=== PATIENT | female | born 2000 | race Asian ===

== ENCOUNTER 2025-03-21 17:25 | Inpatient (IN) | payer OTHER, SELFPAY ==
[2025-03-21] VITALS (8 sets, daily range): BP systolic 97–131; BP diastolic 62–90; BMI 25.8; BMI 27.8
[2025-03-21 13:48] LABS: Glucose - Point of Care 459 mg/dl (70-99)
--- NOTE | 2025-03-21 14:58 | EDRN ---
Unable to find a vein w/ TT to VAT RN at this time.
--- NOTE | 2025-03-21 15:19 | ED.GENMED ---
History of Present Illness
<Isabella Ventura, OPENER - Last Filed: 03/21/25 17:43>
General
Chief Complaint: Blood Sugar Problem
Source: patient
Exam Limitations: none
Time Seen by Provider: 03/21/25 13:55
Nursing documentation reviewed up to this point in time: agreed with
History of Present Illness
History of Present Illness:
24-year-old female with a medical history of Type 1 DM, presents stating earlier today her Dexcom glucose monitor was reading 'high,' at about 12:30 p.m. and she gave herself Lispro 7.9 units at 12:30. During the high reading she felt dizziness,
diaphoresis, and two episodes of vomiting. She feels much better now.
She denies fever, chills, dysuria, frequency, urgency, changes in bowel movements, chest pain, respiratory distress, and abdominal pain. She mentioned having her period and is asking for Motrin for cramps.
Past History
<Isabella Ventura, OPENER - Last Filed: 03/21/25 17:43>
Past History
ED Past Medical History: IDDM
Social History
Tobacco: Non-smoker
Alcohol: None
Personal: Single
Living: with family
Employment: Employed
Review of Systems
<Isabella Ventura, OPENER - Last Filed: 03/21/25 17:43>
Review of Systems
Allergies reviewed?: Yes
All Other Systems: ROS reviewed and negative except as documented in HPI and ROS
Phy Exam
<Isabella Ventura, OPENER - Last Filed: 03/21/25 17:43>
Physical Exam
Physical Exam:
GENERAL: No acute distress. A&Ox3.
CONSTITUTIONAL: Afebrile.
EYES: clear, conjunctivae normal
ENMT: moist mucus membranes, Pharynx nl
RESPIRATORY: Regular respirations, nonlabored, lungs clear.
CARDIOVASCULAR: Regular rate and rhythm, tachycardic, no murmurs, no rubs.
GI: Soft, nontender, normal BS
MUSCULOSKELETAL: Moves with ease. Well perfused.
SKIN: Warm, dry, pink
PSYCH: Normal mood and affect. Well kept, interactive and appropriate
NEUROLOGIC: Awake, alert and oriented. No focal neurological deficits
Course
<Isabella Ventura OPENER - Last Filed: 03/21/25 17:43>
Orders/Labs/Results
Orders:
Orders
03/21/25 14:46
IV Insert/Care/Rem.- Treatment PRN
03/21/25 14:49
0.9% Sodium Chloride 1000 ml [Nss] 1,000 ml IV BOLUS
03/21/25 14:55
Ibuprofen [Motrin] 400 mg PO NOW STA
03/21/25 15:35
B-Hydroxybutyrate Urgent
Comment: ADD ON
Complete Blood Count/With Diff Urgent
Comprehensive Metabolic Panel Urgent
Glycohemoglobin (HgbA1c) Urgent
Manual Differential Urgent
Venous Blood Gas Urgent
%Oxygen/Room Air: 0
03/21/25 16:42
Bedside Glucose- Treatment Q1H
0.9% Sodium Chloride 1000 ml [Nss] 1,000 ml IV BOLUS
0.9% Sodium Chloride 1000 ml [Nss] 1,000 ml IV BOLUS
03/21/25 16:44
Add On- LAB Urgent
Tests Added?: B hydroxybutyrate
03/21/25 16:45
Basic Metabolic Panel Q2H
03/21/25 17:07
Reg Insulin 100 Units/100 ml [Novolin R Insulin Infusion] 100 units in 100 ml IV NOW
03/21/25 17:09
Admit/Transfer Patient As Directed
Co-Sign Provider:
Level of Care: Inpatient admission
Assign to:: ICU
Physician / Group: joaquin
Diagnosis: dka
Reason for Hospitalization: dka
Expected length of stay greater than two midnights?: Yes
ELOS- Estimated Length of Stay in days: 3
I certify the patient meets the requirements for IP care: Yes
PRN Pain Medication Management As Directed
May give lesser potent ordered pain med per pt: Yes
preference::
Protocol:: Medication orders for pain may be administered in a
manner that supports deferring to patient preference
when the pt is:
- Requesting an ordered lesser potent pain medication.
Least to most potent pain medications are defined
as: acetaminophen < NSAID < tramadol < opioids
(morphine, oxycodone, hydromorphone).
- Requesting a lesser dose of the same medication IF
ORDERED.
- Requesting a less intrusive route of administration
if both routes are prescribed by the provider (PO <
IV).
03/21/25 17:10
Code Status As Directed
Resuscitation Status: Full Code
03/21/25 18:45
Basic Metabolic Panel Q2H
03/21/25 20:45
Basic Metabolic Panel Q2H
Abnormal Lab Results
03/21/25 03/21/25 03/21/25
13:46 15:35 17:07
WBC 27.1 H 10^3/uL
(4.8-10.8)
RBC 5.54 H 10^6/uL
(4.20-5.40)
Plt Count 499 H 10^3/uL
(130-400)
Abs Neuts (Manual) 25.4 H 10^3/uL
(1.4-6.5)
Segmented Neutrophils 92 H %
(42-75)
Lymphocytes (Manual) 4 L %
(20-51)
VBG pH 7.13 L*
(7.32-7.43)
VBG pCO2 31 L mmHg
(35-48)
VBG pO2 92 H mmHg
(30-50)
VBG HCO3 10.3 L mmol/L
(22-27)
Carbon Dioxide 7 L* mmol/L
(22-30)
BUN 22 H mg/dl
(7-17)
Glucose 360 H mg/dl
(70-99)
Calcium 10.3 H mg/dl
(8.4-10.2)
Total Protein 9.6 H g/dl
(6.3-8.2)
Albumin 5.7 H g/dl
(3.5-5.0)
B-Hydroxybutyrate 5.67 H mmol/L
(0.02-0.27)
POC Glucose 459 H* mg/dl 247 H mg/dl
(70-99) (70-99)
03/21/25 15:35
Vital Signs
Initial and Last Documented VS:
Initial Vital Signs
Temp Pulse Resp BP Pulse Ox
97.6 F 128 20 131/77 98
03/21/25 13:38 03/21/25 13:38 03/21/25 13:38 03/21/25 13:38 03/21/25 13:38
Last Documented Vital Signs
Temp Pulse Resp BP Pulse Ox
97.6 F 113 18 104/62 100
03/21/25 13:38 03/21/25 17:00 03/21/25 17:00 03/21/25 17:00 03/21/25 17:00
<Beto Eaton DO - Last Filed: 03/21/25 17:03>
Orders/Labs/Results
Orders:
Orders
03/21/25 14:46
IV Insert/Care/Rem.- Treatment PRN
03/21/25 14:49
0.9% Sodium Chloride 1000 ml [Nss] 1,000 ml IV BOLUS
03/21/25 14:55
Ibuprofen [Motrin] 400 mg PO NOW STA
03/21/25 15:35
B-Hydroxybutyrate Urgent
Comment: ADD ON
Complete Blood Count/With Diff Urgent
Comprehensive Metabolic Panel Urgent
Glycohemoglobin (HgbA1c) Urgent
Manual Differential Urgent
Venous Blood Gas Urgent
%Oxygen/Room Air: 0
03/21/25 16:42
Bedside Glucose- Treatment Q1H
0.9% Sodium Chloride 1000 ml [Nss] 1,000 ml IV BOLUS
0.9% Sodium Chloride 1000 ml [Nss] 1,000 ml IV BOLUS
03/21/25 16:44
Add On- LAB Urgent
Tests Added?: B hydroxybutyrate
03/21/25 16:45
Basic Metabolic Panel Q2H
03/21/25 17:07
Reg Insulin 100 Units/100 ml [Novolin R Insulin Infusion] 100 units in 100 ml IV NOW
03/21/25 17:09
Admit/Transfer Patient As Directed
Co-Sign Provider:
Level of Care: Inpatient admission
Assign to:: ICU
Physician / Group: joaquin
Diagnosis: dka
Reason for Hospitalization: dka
Expected length of stay greater than two midnights?: Yes
ELOS- Estimated Length of Stay in days: 3
I certify the patient meets the requirements for IP care: Yes
PRN Pain Medication Management As Directed
May give lesser potent ordered pain med per pt: Yes
preference::
Protocol:: Medication orders for pain may be administered in a
manner that supports deferring to patient preference
when the pt is:
- Requesting an ordered lesser potent pain medication.
Least to most potent pain medications are defined
as: acetaminophen < NSAID < tramadol < opioids
(morphine, oxycodone, hydromorphone).
- Requesting a lesser dose of the same medication IF
ORDERED.
- Requesting a less intrusive route of administration
if both routes are prescribed by the provider (PO <
IV).
03/21/25 17:10
Code Status As Directed
Resuscitation Status: Full Code
03/21/25 18:45
Basic Metabolic Panel Q2H
03/21/25 20:45
Basic Metabolic Panel Q2H
Abnormal Lab Results
03/21/25 03/21/25 03/21/25
13:46 15:35 17:07
WBC 27.1 H 10^3/uL
(4.8-10.8)
RBC 5.54 H 10^6/uL
(4.20-5.40)
Plt Count 499 H 10^3/uL
(130-400)
Abs Neuts (Manual) 25.4 H 10^3/uL
(1.4-6.5)
Segmented Neutrophils 92 H %
(42-75)
Lymphocytes (Manual) 4 L %
(20-51)
VBG pH 7.13 L*
(7.32-7.43)
VBG pCO2 31 L mmHg
(35-48)
VBG pO2 92 H mmHg
(30-50)
VBG HCO3 10.3 L mmol/L
(22-27)
Carbon Dioxide 7 L* mmol/L
(22-30)
BUN 22 H mg/dl
(7-17)
Glucose 360 H mg/dl
(70-99)
Calcium 10.3 H mg/dl
(8.4-10.2)
Total Protein 9.6 H g/dl
(6.3-8.2)
Albumin 5.7 H g/dl
(3.5-5.0)
B-Hydroxybutyrate 5.67 H mmol/L
(0.02-0.27)
POC Glucose 459 H* mg/dl 247 H mg/dl
(70-99) (70-99)
03/21/25 15:35
Vital Signs
Initial and Last Documented VS:
Initial Vital Signs
Temp Pulse Resp BP Pulse Ox
97.6 F 128 20 131/77 98
03/21/25 13:38 03/21/25 13:38 03/21/25 13:38 03/21/25 13:38 03/21/25 13:38
Last Documented Vital Signs
Temp Pulse Resp BP Pulse Ox
97.6 F 113 18 104/62 100
03/21/25 13:38 03/21/25 17:00 03/21/25 17:00 03/21/25 17:00 03/21/25 17:00
<Isabella Ventura OPENER - Last Filed: 03/21/25 17:43>
MDM/Problems Addressed
Differential Diagnosis Includes:
DKA, Infectious process, Dehydration
MDM/Problems Addressed:
24-year-old female with a medical history of Type 1 DM, presents stating earlier today her Dexcom glucose monitor was reading 'high,' at about 12:30 p.m. and she gave herself Lispro 7.9 units at 12:30. During the high reading she felt dizziness,
diaphoresis, and two episodes of vomiting. She feels much better now.
She denies fever, chills, dysuria, frequency, urgency, changes in bowel movements, chest pain, respiratory distress, and abdominal pain. She mentioned having her period and is asking for Motrin for cramps.
Afebrile, NAD
Bedside glucose 459 mg/dl
CBC: WBC 27.1 (vomiting, DKA)
CMP: K+ 5.0, Bicarb 7 Glucose 360
VBG Consistent with DKA
IVFs infusing w/o
4:45 p.m.
Case discussed with Dr. Eaton who evaluated pt. and agrees admit to ICU.
Hospitalist notified of admission
<Isabella Ventura OPENER - Last Filed: 03/21/25 17:43>
*Pulse Oximetry
SaO2: 99
Oxygen Mode of Delivery: Room air
Patient hypoxic: no
<Beto Eaton, DO - Last Filed: 03/21/25 17:03>
*Critical Care Note
Total Time (30-74mins, 75-104mins- exclusive of procedures): 30
comment:
Critical care statement: A total of 30 minutes of critical care time was provided for this patient. This includes management of unstable vital signs, evaluation of the patient at bedside, reviewing the patient's pertinent medical records, discussion
with consultants, review of old EKGs and review of pertinent medical records. This time with separate from time utilized to perform the aforementioned documented procedures
ED Attending Note
<Isabella Ventura, OPENER - Last Filed: 03/21/25 17:43>
-
Portions of this chart may have been created with voice recognition software.� Occasional wrong word or��sound alike� substitutions may have occurred due to the inherent limitations of voice recognition software.
<Beto Eaton, DO - Last Filed: 03/21/25 17:03>
ED Attending Note
Patient seen and examined by attending physician: Yes
I performed a history and physical exam of patient and discussed management with resident, I reviewed resident's note and agree with documented findings and plan of care.: Yes
ED Attending Note:
I reviewed and agree with history treatment plan by Tina Ventura DNP. My exam revealed
Physical Exam
General: no apparent distress, not acutely ill
Neck: supple. no meningeal signs. normal posterior pharynx
Heart: s1/s2 regular rate and rhythm, no murmur. equal radial
pulses.
HEENT: Pupils equal round reactive to light, EOMI
Lungs: no acute respiratory distress. clear bilaterally
Abdomen: normal bowel sounds. not tender. no CVAT
Neuro: alert and oriented. no focal neurological deficits cranial nerves II through XII intact
Skin: no rash
Psychiatric: well kept. interactive and cooperative
Extremities: no edema. no calf tenderness. negative homans. good distal pulses
24-year-old female with DKA, IV fluids and insulin drip initiated, potassium 5.0. Admit to hospitalist.
Discharge Plan
Departure
Patient Disposition: Admit
Date of Disposition: 03/21/25
Time of Disposition: 16:48
Admit to: ICU
Presentation/result/management discussed w/ accepting MD/DO: Hospitalist
Patient with high blood pressure during this ER visit?: No
Condition: Serious
Discharge Problem:
DKA, type 1
Interventions
Interventions:
*Risk Screen - Suicide Last Done: 03/21/25 13:38
*General Assessment Last Done: 03/21/25 13:38
*Neglect/Abuse Screening Last Done: 03/21/25 16:00
*ED- Fall Risk Assessment Last Done: 03/21/25 14:48
*ED COVID-19 Vaccine History Last Done: 03/21/25 14:48
*ED Influenza Vaccine History Last Done: 03/21/25 13:38
ED- Neurological Assessment Last Done: 03/21/25 16:00
[2025-03-21] MEDS: MOTRIN 400 MG PO (15:40)
[2025-03-21 15:41] LABS: Venous Blood Gas B.E. -17.6 mmol/L (-4 to +4); Venous Blood Gas O2 Sat % 97.5 %
[2025-03-21] MEDS: NSS 1000 IV ×2 (15:42→17:14)
[2025-03-21 15:48] LABS: Hematocrit 45.1 % (37.0-47.0); Hemoglobin 15.3 g/dL (12.0-16.0); Mean Corp Hgb Conc. 33.9 g/dL (33.0-37.0); Mean Corpuscular Volume 81.4 fL (81.0-99.0); Platelet Count 499 10^3/uL (130-400); Red Cell Dist. Width 12.0 % (11.5-14.5)
[2025-03-21 15:57] LABS: ALT (SGPT) 22 U/L (0-35); AST (SGOT) 22 U/L (14-36); Albumin 5.7 g/dl (3.5-5.0); Alkaline Phosphatase 89 U/L (38-126); Blood Urea Nitrogen 22 mg/dl (7-17); Calcium 10.3 mg/dl (8.4-10.2); Carbon Dioxide 7 mmol/L (22-30); Chloride 105 mmol/L (98-107); Estimated Creatinine Clearance > 125 ml/min; Glucose 360 mg/dl (70-99); Potassium 5.0 mmol/L (3.5-5.1); Sodium 137 mmol/L (135-145); Total Protein 9.6 g/dl (6.3-8.2); eGFR > 60.00
[2025-03-21 15:59] LABS: Absolute Neutrophils -Man Diff 25.4 10^3/uL (1.4-6.5)
[2025-03-21 16:00] LABS: Normal RBC Morphology Yes; Platelets Checked Yes
[2025-03-21 16:01] LABS: Total Cells Counted 100
--- NOTE | 2025-03-21 16:25 | EDRN ---
Informed Carson LEO of VBG results of pH 7.13 at this time.
--- NOTE | 2025-03-21 16:40 | EDRN ---
Insulin pump removed and thrown into trash by mother at this time per request of Dr. Eaton.
--- NOTE | 2025-03-21 16:57 | HPS.HSE ---
Addendum entered and electronically signed by April Valladares MD 03/21/25 18:07:
This is an addendum to H&P written by Nicky Tinoco on 03/21/2025. �Patient seen and examined independently with HIMS CODER.
24-year-old female past medical history of type 1 diabetes on insulin pump presenting with 'high' blood sugars on Dexcom. �Diaphoretic, vomiting. �No abdominal pain or fever. �No upper respiratory symptoms or urinary symptoms.
Patient with DKA unclear trigger. �N.p.o., IV fluids with potassium, Accu-Chek every hour, BMP every 2 hours, insulin drip, diabetic nurse practitioner consulted.
Original Note:
Family Physician
-
Family Physician: Linus Chakraborty
Chief Complaint
-
hyperglycemia
History of Present Illness
24-year-old female with a medical history of Type 1 DM, presents stating earlier today her Dexcom glucose monitor was reading 'high,'. Lat night her blood sugar was reading at 300's and since then it was reading high all night. today morning she
vomited twice, she was pale, diaphoretic and got dizzy. at that time here Dexcom was reading high. she took 7.9 units at at that time. she has insulin pump, she thought her pods are leaking so changed the Pods. She denies fever, chills, dysuria,
frequency, urgency, changes in bowel movements, chest pain, respiratory distress, and abdominal pain.
Concern for DKA. Patient was initiated on insulin drip. Insulin pump removed. Admitted for further management
Medical History
Past Medical History
Past Medical History: Reports Other
Past Surgical History: Reports Other
Additional Past Surgical History:
Ear tube
Social History
Tobacco: Non-smoker
Alcohol: None
Drug: None
Living: With Family
Family History
Family History: Not pertinent
Allergies / Home Medications
Allergies reflects when Allergies were last updated in [facility].
Home Medications with original date entered in [facility]
Allergy/Medication List:
Allergies
Allergy/AdvReac Type Severity Reaction Status Date / Time
No Known Allergies Allergy Verified 03/21/25 13:38
Home Medications
guanfacine 2 mg tablet,extended release 24 hr 2 mg PO HS 02/18/19
Patient Own Insulin Pump 1 sliding scale dose SC .VIA INSULIN LISPRO Diabetes 03/21/25
metformin 500 mg tablet,extended release 24 hr 2,000 mg PO QPM Diabetes 03/21/25
Review of Systems
-
Constitutional: Reports No Symptoms
EENT: Reports No Symptoms
Respiratory: Reports No Symptoms
Cardiac: Reports Diaphoresis
Abdomen/GI: Reports No Symptoms
: Reports No Symptoms
Musculoskeletal: Reports No Symptoms
Skin: Reports No Symptoms
Neurological: Reports Dizzy
Endocrine: Reports No Symptoms
Hematologic/Lymphatic: Reports No Symptoms
Psych: Reports No Symptoms
Physical Exam
Vital Signs
Vital Signs
Temp Pulse Resp BP Pulse Ox
97.6 F 108 18 110/73 99
03/21/25 13:38 03/21/25 16:00 03/21/25 16:00 03/21/25 16:00 03/21/25 16:00
Physical Exam
General: Well Developed, Well Nourished and No Apparent Distress
HEENT: NormoCephalic, Moist mucous membranes and Atraumatic
Respiratory: Clear
Cardiac: S1/S2 and Regular Rhythm; No Murmur or Rub
GI: Soft, Non Tender, Non Distended and Normal Bowel Sounds; No Organomegaly
Rectal: Deferred by Provider
Musculoskeletal: No Clubbing, No Cyanosis and No Edema
Skin: No Rash
Neuro: AO x 3 and Nonfocal/grossly intact
Psych: Calm
Laboratory Results
-
03/21/25 15:35
Laboratory Results
Total Bilirubin 0.8 mg/dl (0.2-1.3) 03/21/25 15:35
AST 22 U/L (14-36) 03/21/25 15:35
ALT 22 U/L (0-35) 03/21/25 15:35
Alkaline Phosphatase 89 U/L (38-126) 03/21/25 15:35
Data Reviewed
-
Lab Data: Labs Reviewed by me
Impression/Plan
-
# Type 1 diabetes
# DKA
- Regular insulin continued
- Fluids continued
- Diabetic HIMS CODER consulted
- Hold metformin
- Insulin pump removed
# Leukocytosis likely reactive
- WBCs down to 7.1, patient is afebrile
- Continue to monitor
# DVT prophylaxis
- Lovenox
# CODE STATUS
- Full code
--- NOTE | 2025-03-21 17:05 | CM ---
Chart reviewed and spoke with patient and mother at ED bedside
Lives with parents, brother and grandfather
Independent
DME Dexcom
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
PCP DR. Linus Chakraborty
Pharmacy [facility]
no hx of VN nor SNF
DCP is to go home and mom can drive
Cm will continue to follow up for any dcp needs
[2025-03-21 17:08] LABS: Glucose - Point of Care 247 mg/dl (70-99)
--- NOTE | 2025-03-21 17:14 | EDRN ---
Called pharmacist to mix and send insulin drip at this time
--- NOTE | 2025-03-21 17:31 | EDRN ---
Dr. Campbell in room w/ pt at this time.
[2025-03-21] MEDS: NOVOLIN R INSULIN INFUSION 100 IV (17:35)
--- NOTE | 2025-03-21 17:50 | EDRN ---
Report called to Zakia HAQ in ICU at this time.
[2025-03-21 18:30] LABS: Glucose - Point of Care 177 mg/dl (70-99)
--- NOTE | 2025-03-21 18:34 | PTCARENOTE ---
patient received from ED, insulin handoff per documentation. accucheck as noted. D/W pharmacist and typewriter aligner [employer]. orders pending. VAT team notified of need for possible midline IV access. call rojas in reach
[2025-03-21 19:13] LABS: Glucose - Point of Care 131 mg/dl (70-99)
--- NOTE | 2025-03-21 19:19 | PTCARENOTE ---
IVF changed,Clothing Consultant ROLLING CHAIR PUSHER updated. orders noted. VAT RN at bedside to insert midline. report to ongoing RN
[2025-03-21] MEDS: TORADOL 15 MG IV (19:27)
[2025-03-21] MEDS: LOVENOX 40 MG SC (19:27)
[2025-03-21] MEDS: D5/0.45%NSS with KCL 20 MEQ 1000 IV (19:28)
[2025-03-21 19:45] LABS: APTT 23.2 Sec (23.4-35.0); INR 1.10; PT 14.3 Sec (11.4-14.6)
[2025-03-21 20:00] LABS: Blood Urea Nitrogen 16 mg/dl (7-17); Calcium 8.6 mg/dl (8.4-10.2); Carbon Dioxide 11 mmol/L (22-30); Chloride 114 mmol/L (98-107); Estimated Creatinine Clearance 123 ml/min; Glucose 149 mg/dl (70-99); Magnesium 1.9 mg/dl (1.6-2.3); Potassium 4.4 mmol/L (3.5-5.1); Sodium 137 mmol/L (135-145); eGFR > 60.00
[2025-03-21 20:12] LABS: Glucose - Point of Care 145 mg/dl (70-99)
--- NOTE | 2025-03-21 20:48 | PTCARENOTE ---
Handoff report received from off going RN. Patient received on insulin gtt. Titration as per DKA protocol. VAT team at the bedside for midline placement. Patient became tearful due to fear of needles per the patient. Distraction and comfort measures
provided. Toradol for headache. Plan of care for the shift reviewed with the patient. Sinus tachy on the monitor with HR fluctuating between 110-120s. Diminished breath sounds. SpO2 at 100% on room air. Hypoactive BS. Patient encouraged to turn and
reposition in bed. D5/1/2NS with 20 kcl at 150% mls/hr. Call rojas is within reach.
[2025-03-21 21:12] LABS: Glucose - Point of Care 170 mg/dl (70-99)
[2025-03-21 22:10] LABS: Glucose - Point of Care 158 mg/dl (70-99)
[2025-03-21 23:10] LABS: Glucose - Point of Care 162 mg/dl (70-99)
[2025-03-22] VITALS (14 sets, daily range): BP systolic 93–136; BP diastolic 55–97; BMI 27.6
--- NOTE | 2025-03-22 00:12 | PTCARENOTE ---
Patient reassessed. Sinus tach on the monitor with HR 107. No changes.
[2025-03-22 00:18] LABS: Glucose - Point of Care 188 mg/dl (70-99)
[2025-03-22 00:46] LABS: Blood Urea Nitrogen 16 mg/dl (7-17); Calcium 8.2 mg/dl (8.4-10.2); Carbon Dioxide 17 mmol/L (22-30); Chloride 111 mmol/L (98-107); Estimated Creatinine Clearance 123 ml/min; Glucose 185 mg/dl (70-99); Potassium 4.0 mmol/L (3.5-5.1); Sodium 133 mmol/L (135-145); eGFR > 60.00
[2025-03-22 01:12] LABS: Glucose - Point of Care 166 mg/dl (70-99)
[2025-03-22] MEDS: D5/0.45%NSS with KCL 20 MEQ 1000 IV ×2 (02:00→08:12)
[2025-03-22 02:14] LABS: Glucose - Point of Care 178 mg/dl (70-99)
[2025-03-22 03:11] LABS: Glucose - Point of Care 173 mg/dl (70-99)
[2025-03-22 04:27] LABS: Venous Blood Gas B.E. -9.0 mmol/L (-4 to +4); Venous Blood Gas O2 Sat % 99.4 %
[2025-03-22 04:28] LABS: Glucose - Point of Care 181 mg/dl (70-99); Venous Blood Gas O2 Therapy ROOM AIR
[2025-03-22 04:43] LABS: Blood Urea Nitrogen 11 mg/dl (7-17); Calcium 8.2 mg/dl (8.4-10.2); Carbon Dioxide 18 mmol/L (22-30); Chloride 112 mmol/L (98-107); Estimated Creatinine Clearance 123 ml/min; Glucose 184 mg/dl (70-99); Magnesium 2.0 mg/dl (1.6-2.3); Potassium 4.0 mmol/L (3.5-5.1); Sodium 135 mmol/L (135-145); eGFR > 60.00
[2025-03-22 04:58] LABS: Hematocrit 33.9 % (37.0-47.0); Hemoglobin 11.4 g/dL (12.0-16.0); Mean Corp Hgb Conc. 33.6 g/dL (33.0-37.0); Mean Corpuscular Volume 82.1 fL (81.0-99.0); Platelet Count 385 10^3/uL (130-400); Red Cell Dist. Width 12.3 % (11.5-14.5)
[2025-03-22 05:19] LABS: Glucose - Point of Care 138 mg/dl (70-99)
[2025-03-22 06:14] LABS: Glucose - Point of Care 178 mg/dl (70-99)
[2025-03-22 07:16] LABS: Glucose - Point of Care 225 mg/dl (70-99)
--- NOTE | 2025-03-22 07:18 | PTCARENOTE ---
vital signs filed for previous shift from 03/21 2330- 03/22 0700.
--- NOTE | 2025-03-22 08:06 | W.PN.HOSP.TC ---
Today's Communication/Plan
-
see A/P
Assessment / Plan
Assessment / Plan
HPI: 24-year-old female past medical history of type 1 diabetes on insulin pump, p/w 'high' blood sugars on Dexcom. �
Also c/o diaphoresis and vomiting. �No abdominal pain or fever. �No upper respiratory symptoms or urinary symptoms.
A/P:
# DKA, resolved
# Type 1 diabetes
Anion gap closed x2, change insulin drip to SQ insulin (pt does not have insulin pump with her)
Start NPH 7 units now, then Lantus 10 units HS, Aspart 5 units AC
ISS coverage
Start diabetic diet
Diabetic PRODUCTION SUPV consulted
# Leukocytosis likely reactive
Check COVID/Flu
Check blood culture to r/o
DVT prophylaxis- Lovenox
CODE STATUS- Full code
DW RN
Anticipated Discharge: Within 24 hours
Subjective/Interval History
-
Date of Service: March 22, 2025
Objective Data
-
Labs:
Laboratory Results
03/22/25 03/22/25 03/22/25
00:12 04:11 08:03
WBC 18.7 H
Hgb 11.4 L D
Hct 33.9 L
Plt Count 385 D
Sodium 133 L 135 Pending
Potassium 4.0 4.0 Pending
Chloride 111 H 112 H Pending
Carbon Dioxide 17 L 18 L Pending
BUN 16 11 Pending
Creatinine 0.4 L 0.4 L Pending
Glucose 185 H 184 H Pending
Calcium 8.2 L 8.2 L Pending
03/22/25 03/22/25 03/22/25
12:00 16:00 20:00
WBC
Hgb
Hct
Plt Count
Sodium Pending Pending Pending
Potassium Pending Pending Pending
Chloride Pending Pending Pending
Carbon Dioxide Pending Pending Pending
BUN Pending Pending Pending
Creatinine Pending Pending Pending
Glucose Pending Pending Pending
Calcium Pending Pending Pending
Vital Signs:
Vital Signs
Temp Pulse Resp BP Pulse Ox
37.0 C 120 18 122/90 99
03/22/25 07:08 03/21/25 18:32 03/21/25 18:32 03/21/25 18:28 03/21/25 19:10
I&O
03/21/25 03/22/25 03/23/25
06:59 06:59 06:59
Intake Total 1596 / 1748 152 / 152
Balance 1596 / 1748 152 / 152
[2025-03-22 08:14] LABS: Glucose - Point of Care 230 mg/dl (70-99)
--- NOTE | 2025-03-22 08:28 | CON.INTV ---
Consultation
Consultation Request
Date/Time Consultation Requested: 03/21/2025
Date/Time Consultation Performed: 03/22/2025
Requesting Provider: Dr. Valladares
Performing Provider: Dr. Kraus
Reason for Consultation: DKA
Medical History
-
Chief Complaint: Abd pain + vomiting with high blood sugar
History of Present Illness:
24-year-old female type I diabetic presented with elevated glucose levels in addition to vomiting. Patient was in her usual state of health, and then on the evening of 03/20 she started to have 'high' glucose levels reading from her Dexcom glucose
monitor. This persisted into the following day and she also vomited and appeared pale, per the mother. Patient arrived and was tachycardic with abdominal discomfort and felt dizzy. Initial blood glucose upon arrival was 360mg/dL with a serum
bicarbonate level of 7, increased anion gap of 25 and beta-hydroxybutyrate: 5.67. 2 L IVF with 0.9% NS was given in the ER in addition to ibuprofen 400mg. Patient then started on insulin drip and admitted to the ICU for further care with
laborer laboratory service consulted for additional management/recommendations.
When I saw the patient this morning, she was feeling much better. Current heart rate 120, BP 118/80 and she is breathing comfortably on room air. She no longer has urge to vomit, denies nausea, also denies shortness of breath, chest pain,
abdominal pain, fevers or chills. I spoke to the patient's parents, Nola (mother) and David (father) -they deny that Sheryl has been sick recently. She has been using her insulin pump without issue, managed by endocrinology at [facility] in
[place]. Patient uses insulin pump that has a basal rate and additional short acting insulin is given to her if needed depending on what she eats (which she inputs into her favian and that is how the pump knows how much to give her). Of note,
she uses an insulin pump patch, usually places it onto her arm; sometimes it leaks but this is not unusual.
PMHx: DM type I on insulin pump
PSHx: Myringotomy tubes
Past Medical History
Past Medical History: Other (Above as per HPI)
Past Surgical History: Other (Above as per HPI)
Social History
Tobacco: Non-smoker
Alcohol: None
Drug: None
Living: With Family
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
Family History
Family History: Reviewed & Not Pertinent
Allergies / Home Medications
Allergies
Allergy/AdvReac Type Severity Reaction Status Date / Time
No Known Allergies Allergy Verified 03/21/25 13:38
Home Medications
�Medication �Instructions �Recorded �Confirmed �Last Taken �Type
guanfacine 2 mg tablet,extended 2 mg PO HS 02/18/19 03/21/25 03/20/25 History
release 24 hr
Patient Own Insulin Pump 1 sliding scale dose SC .VIA 03/21/25 03/21/25 Unknown History
INSULIN LISPRO Diabetes
metformin 500 mg tablet,extended 2,000 mg PO QPM Diabetes 03/21/25 03/21/25 03/20/25 History
release 24 hr
Review of Systems
-
History Source: Patient
All other systems: Negative unless noted
Vitals / Labs / Diagnostic Testing
Vital Signs
Temp Pulse Resp BP Pulse Ox
98.6 F 97 10 110/66 99
03/22/25 07:08 03/22/25 09:15 03/22/25 09:15 03/22/25 09:00 03/22/25 09:15
Lab Data
03/22/25 04:11
03/22/25 20:00
Laboratory Results
03/21/25 03/21/25
18:34 19:29
PT Cancelled 14.3
INR Cancelled 1.10
APTT 23.2 L
Diagnostic Testing:
Physical Exam
-
HEENT: Normocephalic and Anicteric
Cardiovascular: S1/S2, Rub (negative), Peripheral Edema (negative) and Other (Tachycardic)
Respiratory: Wheeze (negative), Rales (negative), Rhonchi (negative) and Non-Labored Respirations
GI: Soft, Non Distended, Non Tender and Normal Bowel Sounds
Neurology: Awake, Alert, Oriented and Tremors (negative)
Skin: Warm and Dry
General: Respiratory Distress (negative), Comfortable, Fever (negative) and Chills (negative)
Assessment
-
Assessment: 24-year-old female type I diabetic presented with elevated glucose levels in addition to vomiting. Patient was in her usual state of health, and then on the evening of 03/20 she started to have 'high' glucose levels reading from her
Dexcom glucose monitor. This persisted into the following day and she also vomited and appeared pale, per the mother. Patient arrived and was tachycardic with abdominal discomfort and felt dizzy. Initial blood glucose upon arrival was 360 with a
serum bicarbonate level of 7, increased anion gap of 25 and beta-hydroxybutyrate: 5.67. 2 L IVF with 0.9% NS was given in the ER in addition to ibuprofen 400mg. Patient then started on insulin drip and admitted to the ICU for further care with
laborer laboratory service consulted for additional management/recommendations.
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
Impression:
#DM type I complicated by DKA
#Sinus tachycardia likely due to stress from above (possible component of anxiety)
#Pseudohyponatremia
#Metabolic acidosis with increased anion gap (due to DKA, and now gap is closed although she does remain slightly acidotic)
Plan:
- Unclear what caused her DKA as patient was in her usual state of health prior to her sugars starting to rise on the evening of 03/20
- The patient's insulin pump has been leaking, although this is a mild amount and is not unusual for her pump
- Patient uses Dexcom glucometer, and an insulin pump patch, and is monitored by an marine service operator at [facility] (Dr. Dede Oviedo)
- Patient is now being weaned off insulin drip as serum bicarbonate level has been 18 or greater x2 with AG closed x3
- Patient is being transitioned to basal�bolus SQ insulin;the patient's mother has brought in her insulin pump and considering that the patient will go home with this modality, I will restart this now
- Once insulin pump is attached to the patient, then we will stop the Lantus that is currently ordered in addition to pre-meal SQ insulin and will continue with ISS only
- Maintain euglycemia with goal BG 140-180; HbA1c is 8.0%
- Maintain SpO2 >90-94%, using supplemental O2 if needed
- Maintain MAP>65
- Replete electrolytes with K>4, Mg>2
- Patient does have leukocytosis which was initially significant at 27.1, which is improving to now 18.7
- She is nontoxic-appearing and denies UTI symptoms, denies a cough, denies abdominal pain, fevers or chills
- As of now, leukocytosis appears reactive and would monitor off antibiotics
- Check UA
- Continue trending WBC and monitor temperature curve with low threshold to parmar-culture and start antibiotics if patient spikes a fever
- Trend H/H and transfuse if needed to keep Hb>7g/dL; keep plt>20k, unless there is concern for bleeding then keep plt>50k
- prn nebulized bronchodilators - not currently bronchospastic
- Incentive spirometer encouraged 10x per hour for at least 4 hrs a day
- DVT ppx: LMWH
Patient is stable for downgrade out of ICU to telemetry. No additional recommendations at this time. Keyboard Specialist/Pulmonary service will now sign off. Thank you for allowing us to be involved in the care of this patient. Please reconsult if there
are any additional questions/concerns, or if patient's respiratory status deteriorates.
Total time spent today was 78 minutes for this encounter. Time includes reviewing laboratory test/imaging results, reviewing pertinent medical records, obtaining and reviewing medical history, performing an appropriate exam, ordering medications,
tests and procedures. Time also includes documentation of this encounter, coordinating patient care and communicating with other healthcare professionals. Total time does not include separately billed tests performed on this date of service.
[2025-03-22 09:01] LABS: Blood Urea Nitrogen 9 mg/dl (7-17); Calcium 8.1 mg/dl (8.4-10.2); Carbon Dioxide 19 mmol/L (22-30); Chloride 111 mmol/L (98-107); Estimated Creatinine Clearance 123 ml/min; Glucose 223 mg/dl (70-99); Potassium 4.0 mmol/L (3.5-5.1); Sodium 134 mmol/L (135-145); eGFR > 60.00
[2025-03-22 09:12] LABS: Glucose - Point of Care 209 mg/dl (70-99)
[2025-03-22 09:27] LABS: COVID-19 Antigen Negative (Negative)
[2025-03-22] MEDS: NOVOLIN N vial 0.07 UNITS SC (09:28)
[2025-03-22 09:42] LABS: Glycohemoglobin (HgbA1c) 8.0 % (4.0-5.9)
[2025-03-22 10:09] LABS: Glucose - Point of Care 195 mg/dl (70-99)
--- NOTE | 2025-03-22 10:40 | CM ---
Chart reviewed. Spoke with her nurse in ICU
DCP is to go home tomorrow per attending
no needs anticipated
[2025-03-22 10:45] LABS: Glucose - Point of Care 168 mg/dl (70-99)
[2025-03-22] MEDS: NOVOLOG FLEXPEN-LOW RESISTANCE 1 UNITS SC (11:11)
[2025-03-22] MEDS: NOVOLOG FLEXPEN 5 UNITS SC (11:11)
--- NOTE | 2025-03-22 11:18 | PTCARENOTE ---
Rec'd pt at 0700, pt AAOx3. OOB to bathroom. Monitor ST. Lungs CTA, pox 98% RA. +BS, abd soft/nt. VDG yellow urine. Insulin gtts infusing with q1hr accuchecks per protocol.
0930-7 units SQ NPH given. Insulin gtts and IVF's turned off at 1030. Pt ordered breakfast and is currently OOB in chair eating with father at bedside.
[2025-03-22 13:09] LABS: Blood Urea Nitrogen 8 mg/dl (7-17); Calcium 8.9 mg/dl (8.4-10.2); Carbon Dioxide 20 mmol/L (22-30); Chloride 108 mmol/L (98-107); Estimated Creatinine Clearance 123 ml/min; Glucose 225 mg/dl (70-99); Potassium 4.4 mmol/L (3.5-5.1); Sodium 135 mmol/L (135-145); eGFR > 60.00
--- NOTE | 2025-03-22 14:21 | PTCARENOTE ---
1240-mother helped pt reapply insulin pump device to pt's ROLO. When asked what pt's basal rate was pt stated that she didn't know and didn't know any of her settings. Pt attempted to look in favian and was only able to find max basal dose. 2 RNs looked
through pt's favian and from previous data appears basal rate adjusts according to pt's blood sugar. MD notified. Pt aware to not give herself any bolus doses of insulin with meals and that we will be checking her glucose with our glucometers as well
and treating her with our SSI before meals, pt verbalizes understanding. Pt downgraded to tele LOC.
[2025-03-22 14:51] LABS: Urine Character Clear (Clear)
[2025-03-22 15:28] LABS: Urine Squamous Cell >30 /LPF (Few)
[2025-03-22 15:52] LABS: Glucose - Point of Care 163 mg/dl (70-99)
[2025-03-22] MEDS: NOVOLOG FLEXPEN-MODERATE RESISTANCE 300 UNITS SC (15:52)
[2025-03-22] MEDS: LOVENOX 40 MG SC (17:01)
--- NOTE | 2025-03-22 21:39 | PTCARENOTE ---
PAtient received in bed AAOx4 and able to make her needs known. Plan of care for the shift reviewed with the patient. Pt verbalizes swelling on her left arm. Site assessed- no redness/ not cool or cold to the touch, not painful per the patient, but
is with +1 edema. Pt's IV is on the left wrist. Arm elevated on 2 pillows. Sinus tachy on the monitor. Breath sounds are cta. + BS. Patient encouraged to move around. Night care provided. All needs are within reach.
[2025-03-22 22:02] LABS: Glucose - Point of Care 106 mg/dl (70-99)
[2025-03-23 05:01] VITALS: BP 105/61
[2025-03-23 05:23] VITALS: BMI 27.4
[2025-03-23 07:49] LABS: Glucose - Point of Care 114 mg/dl (70-99)
--- NOTE | 2025-03-23 07:51 | W.PN.HOSP.TC ---
Today's Communication/Plan
-
see A/P
Assessment / Plan
Assessment / Plan
HPI: 24-year-old female past medical history of type 1 diabetes on insulin pump, p/w 'high' blood sugars on Dexcom. �
Also c/o diaphoresis and vomiting. �No abdominal pain or fever. �No upper respiratory symptoms or urinary symptoms.
A/P:
# DKA, resolved
# Type 1 diabetes
Anion gap closed, change insulin drip to MAPPING SUPERVISOR insulin pump
ISS coverage
diabetic diet
# Leukocytosis likely reactive
COVID/Flu negative
Follow blood cultures
Per pt, no blood work today due to 'not able to find my veins'
Informed pt and mother (on the phone) to check repeat CBC and BMP with PCP in 1 week
DVT prophylaxis- Lovenox
CODE STATUS- Full code
updated mother on the phone
Anticipated Discharge: Today
Subjective/Interval History
-
Date of Service: March 23, 2025
Objective Data
-
Labs:
Laboratory Results
03/23/25
06:00
WBC Pending
Hgb Pending
Hct Pending
Plt Count Pending
Sodium Pending
Potassium Pending
Chloride Pending
Carbon Dioxide Pending
BUN Pending
Creatinine Pending
Glucose Pending
Calcium Pending
Vital Signs:
Vital Signs
Temp Pulse Resp BP Pulse Ox
36.7 C 104 15 105/61 99
03/23/25 07:39 03/23/25 05:15 03/22/25 19:36 03/23/25 05:01 03/23/25 05:25
I&O
03/22/25 03/23/25 03/24/25
06:59 06:59 06:59
Intake Total 1596 / 1748 1510 / 1510
Output Total 500 / 500
Balance 1596 / 1748 1010 / 1010
Review of Systems
-
History Source: Patient
All other systems: Reviewed and negative
Physical Exam
-
General: Well Developed, Well Nourished, No Apparent Distress, Comfortable and Conversant; Negative Respiratory Distress
HEENT: Normocephalic, Atraumatic, Nose Appears Normal and Ears Appear Normal; Negative Oxygen
Respiratory: Clear to Auscultation and Non Labored Respirations; Negative Accessory Resp Muscle Use
Cardiac: Regular Rhythm and S1/S2
GI: Soft, Nontender, Nondistended and Normal Bowel Sounds
Skin: Warm and Dry
Neuro: Awake, Alert, Oriented and AO x 3
Psych: Calm and Intact Judgement/Insight
Data Reviewed
-
Labs: Labs Reviewed by me
[2025-03-23] MEDS: NOVOLOG FLEXPEN-MODERATE RESISTANCE SC (08:13)
[2025-03-23 08:26] VITALS: BP 108/62
--- NOTE | 2025-03-23 10:31 | PTCARENOTE ---
Rec'd pt at 0700. Pt AAOx3. OOB to bathroom. Monitor SR 80-90's. Lungs CTA. Discharge orders rec'd. Instructions/lab prescriptions reviewed with pt and parents. Midline removed by VAT. Pt discharged to home at approx 1030.
--- NOTE | 2025-03-23 10:47 | CM ---
Pt for discharge, mother here and will transport home. Mother asked if pt was seen by Mirror Painter on admission, chart reviewed, was not seen by Mirror Painter or Test Consultant since it is a weekend. They will follow up with Hairspring Ii Inspector for
referrals.
--- NOTE | 2025-03-23 13:10 | W.DCSUMMARY ---
Discharge Summary
Discharge Data
Date of Admission: 03/21/25
Date of Discharge: 03/23/25
Total time spent discharging patient (in min): 40
-
Pending Results: No
Hospital Course
Principal Diagnosis:
DKA in setting of Type 1 diabetes, resolved
Leukocytosis, suspect reactive
Chronic Diagnoses:�
Type 1 diabetes
Obesity, BMI 27
Consultations:�
Legal Compliance Officer
Procedures:�
None
Clinical course:�
This is a 24-year-old female with past medical history of type 1 diabetes on insulin pump, who presented with high blood glucose on her monitor.
She also c/o diaphoresis and vomiting.
Problem 1:
DKA in setting of Type 1 diabetes, resolved.
She was treated with insulin drip while in the hospital which was then transition back to her insulin pump after closure of anion gap.
She was noted to have leukocytosis which is likely reactive.
Her COVID/Flu tests were negative, and her blood cultures were negative.
She has been informed to check repeat CBC and BMP with her PCP in 1 week.
As for the rest of her medical problems, they were stable during her hospital stay.
Discharge Plan
-
Patient Disposition: Home (Routine Discharge)
Discharge Diagnosis/Procedures: DKA (resolved) in setting of type 1 diabetes
Condition: Good
Diet: As tolerated and Diabetic, Carb Controlled
Activity: As tolerated
Driving Restrictions: As prior to admission
Blood Work: CBC with diff, BMP; with PCP in 1 week
Stand Alone Forms: Return to Work
Referrals:
Linus Chakraborty MD [Family Provider, [facility]] - in less than 1 week
Prescriptions:
New
(DME) CBC with diff
See Rx Instructions .Route .MEDSUPPLY Qty: 1 0RF
Rx Instructions:
03/25/2025 - 04/01/2025, result to PCP
# DKA
(DME) BMP
See Rx Instructions .Route .MEDSUPPLY Qty: 1 0RF
Rx Instructions:
03/25/2025 - 04/01/2025, result to PCP
# DKA
Continued
guanfacine 2 MG tablet extended release 24 hr
2 mg PO HS
metformin 500 mg Tablet Extended Release 24 Hr
2,000 mg PO QPM
Patient Own Insulin Pump
1 sliding scale dose SC .VIA INSULIN LISPRO
Discharge Orders:
Discharge Patient (As Directed); Ordered 03/23/25
Ordered By: Sunitha Corey
Discharge Date and Time
Discharge Date/Time: 03/23/25 10:46
Print Language: MAORI
== END 2025-03-23 10:46 | disposition home or self-care (01) | DRG 639 ==
LOC: ICU 17:25
PROVIDERS: Nurse Practitioner Family; Registered Nurse; ADMITTING PHYSICIAN Hospitalist; ATTENDING PHYSICIAN Internal Medicine; CONSULT PHYSICIAN Internal Medicine Critical Care Medicine; EMERGENCY PHYSICIAN Emergency Medicine; FAMILY PHYSICIAN Family Medicine
DX: E10.10 Type 1 diabetes mellitus with ketoacidosis without coma (principal); Z79.4 Long term (current) use of insulin; Z11.52 Encounter for screening for COVID-19; E66.9 Obesity, unspecified; Z68.27 Body mass index [BMI] 27.0-27.9, adult; Z96.41 Presence of insulin pump (external) (internal)
CPT/HCPCS: 71045; 80048; 80053; 81003; 81015; 82010; 82805; 82962; 83036; 83735; 84100; 85025; 85027; 85610; 85730; 87040; 87502; 87811; 93005; 96361; 96365; 99291